=== PATIENT | female | born 2000 | race Caucasian/White ===

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

== ENCOUNTER → 2022-08-02 | Outpatient (REF) | payer OTHER ==
[~2022-08-02] MED LIST changes: -AMIT10TA PO; +AMIT10TA7 PO; +PERCOCET PO
== END ==
LOC: M WUC 18:56
PROVIDERS: ATTEND Physician Assistant
DX: R30.0 Dysuria (principal)